=== PATIENT | male | born 1955 | race Caucasian/White ===

== ENCOUNTER 2022-11-29 12:56 | Outpatient (RCR) | payer MEDICARE, OTHER, SELFPAY | END 2022-12-28 16:43 | disposition home or self-care (01) | LOC: ST 12:56 | PROVIDERS: PCP Family Medicine | DX: G20 Parkinson's disease (principal); R47.1 Dysarthria and anarthria; R13.10 Dysphagia, unspecified | CPT/HCPCS: 92507; 92522; 92526; 92610 ==

== ENCOUNTER 2023-08-01 09:27 | Outpatient (OUT) | payer MEDICARE, OTHER, SELFPAY ==
[2023-08-01 09:58] LABS: Basophils Percent Auto 0.5 % (0.2-2.0); Eosinophils Absolute Auto 0.2 10^3/uL (0.0-0.7); Eosinophils Percent Auto 2.9 % (0.9-7.0); Hematocrit 47.3 % (42.0-54.0); Hemoglobin 15.4 g/dL (14.0-18.0); Immature Granulocytes Abs Auto 0.01 10^3/uL (0.00-0.03); Immature Granulocytes Pct Auto 0.2 % (0.0-0.5); Lymphocytes Percent Auto 32.1 % (20.5-60.0); Mean Corpuscular HGB Conc 32.6 g/dL (29.9-35.2); Mean Corpuscular Hemoglobin 29.2 pg (25.9-34.0); Mean Corpuscular Volume 89.6 fL (80.0-94.0); Mean Platelet Volume 10.3 fL (9.5-13.5); Monocytes Absolute Auto 0.5 10^3/uL (0.3-0.8); Monocytes Percent Auto 8.4 % (1.7-12.0); Neutrophils Absolute Auto 3.5 10^3/uL (1.4-6.5); Neutrophils Percent Auto 55.9 % (43.0-75.0); Platelet Count 255 10^3/uL (150-450); Red Blood Count 5.28 10^6/uL (4.70-6.10); Red Cell Distribution Width 13.1 % (11.0-15.0); White Blood Count 6.2 10^3/uL (4.0-11.0)
[2023-08-01 10:15] LABS: Estimated Average Glucose 120 mg/dL; Glycohemoglobin A1C 5.8 % (4.5-6.2)
[2023-08-01 10:27] LABS: Alanine Aminotransferase <6 U/L (16-63); Albumin Globulin Ratio 0.8; Albumin Level 3.4 g/dL (3.4-5.0); Alkaline Phosphatase 72 U/L (46-116); Anion Gap 13.4; Aspartate Amino Transferase 17 U/L (15-37); Bilirubin Total 0.3 mg/dL (0.2-1.0); Calcium 8.7 mg/dL (8.5-10.1); Carbon Dioxide 26.7 mmol/L (21.0-32.0); Chloride 103 mmol/L (98-107); Chol HDL Ratio 3.6; Cholesterol 207 mg/dL (<=200); Estimated GFR (African America >60 (>=60); Estimated GFR (Non-African Ame >60 (>=60); Free T3 2.56 pg/mL (2.18-3.98); Globulin 4.3 g/dL; Glucose 121 mg/dL (74-106); HDL Cholesterol 57 mg/dL (40-60); Potassium 4.1 mmol/L (3.5-5.1); Sodium 139 mmol/L (136-145); Thyroid Stimulating Hormone 2.109 uIU/mL (0.358-3.740); Total Protein 7.7 g/dL (6.4-8.2); Triglycerides 147 mg/dL (<=150); Uric Acid 6.3 mg/dL (3.5-7.2); VLDL CHOLESTEROL 29.4 mg/dL
[2023-08-01 10:47] LABS: Prostate Specific Antigen Scrn 0.65 ng/mL (<=4.00)
[2023-08-02 10:13] LABS: Insulin 22.3 uIU/mL (2.6-24.9)
== END 2023-08-01 09:28 | disposition home or self-care (01) ==
LOC: LAB 09:33
PROVIDERS: PCP Family Medicine; Visit Provider Family Medicine
DX: N32.81 Overactive bladder (principal); I10 Essential (primary) hypertension; F03.90 Unspecified dementia, unspecified severity, without behavioral disturbance, psychotic disturbance, mood disturbance, and anxiety; B35.1 Tinea unguium; E78.5 Hyperlipidemia, unspecified; R73.09 Other abnormal glucose; Z12.5 Encounter for screening for malignant neoplasm of prostate
CPT/HCPCS: 36415; 80053; 80061; 83036; 83525; 84436; 84443; 84481; 84550; 85025; G0103

== ENCOUNTER 2024-08-04 09:19 | Outpatient (OUT) | payer MEDICARE, OTHER, SELFPAY ==
--- OUTSIDE RECORDS SUMMARY | 2024-08-04 09:23 | XMS_ITS | CCD ---
Author Organization [facility]iniSymn Care Team Providers Care Sales Support Rep Name Role Phone KHURRAM SOUTH Admitting Unavailable KHURRAM SOUTH Attending Unavailable HOY ., DR BRAGG Primary Care Unavailable RAY, DR OLGA Martin Consulting Unavailable BRANNON, KHURRAM Consulting Unavailable HOY ., DR BRAGG Admitting Unavailable HOY ., DR BRAGG Attending Unavailable HOY ., DR BRAGG Primary Care Unavailable HOY ., DR BRAGG Consulting Unavailable HOY ., DR BRAGG Admitting Unavailable HOY ., DR BRAGG Attending Unavailable HOY ., DR BRAGG Primary Care Unavailable HOY ., DR BRAGG Consulting Unavailable BRANNON, KHURRAM Admitting Unavailable BRANNON, KHURRAM Attending Unavailable HOY ., DR BRAGG Primary Care Unavailable RAY, DR OLGA Martin Consulting Unavailable BRANNON, KHURRAM Consulting Unavailable BRANNON, KHURRAM Admitting Unavailable BRANNON, KHURRAM Attending Unavailable HOY ., DR BRAGG Primary Care Unavailable RIGOBERTO, DR LATRICE Plaza Consulting Unavailable KHURRAM SOUTH Consulting Unavailable MD Mahsa Gonzalez Primary Care Provider [phone] DO Jorge Jones Attending Provider [phone] MD Mahsa Gonzalez Primary Care Provider [phone] DO Nuria Castillo Attending Provider [phone] Nuria Castillo Attending Unavailable Nuria Castillo Admitting Unavailable Mahsa Gonzalez Primary Care Unavailable Jorge Jones Admitting Unavailab Mahsa Decker Primary Care Unavailable Jorge Jones Attending Unavailab Mahsa Decker MD Primary Care Provider [phone] EDWARD RYAN Attending Unavailable EDWARD RYAN Attending Unavailable EDWARD RYAN Attending Unavailable Allergies Allergy Classification Reported Allergen(s) Allergy Type Date of Onset Reaction(s) Facility (6 sources) ramelteon; Translations: [ramelteon] Drug Allergy 8 Shortness of breath [facility] (2 sources) Memantine; Translations: [memantine] Drug Allergy 4 dizzy [facility] (2 sources) Mold Extract; Translations: [mold] Drug Allergy 4 Sneezing [facility] (2 sources) Ragweed pollen; Translations: [ragweed pollen] Allergy to substance 4 Sneezing [facility] (3 sources) Mold Extract Drug Allergy 4 [facility] Medications Current Medications Medication Drug Class(es) Dates Sig (Normalized) Sig (Original) amphetamine aspartate 7.5 mg / amphetamine sulfate 7.5 mg / dextroamphetamine saccharate 7.5 mg / dextroamphetamine sulfate 7.5 mg oral tablet (5 sources) Central Nervous System Stimulant Start: 02-10-2018 take 1 tablet by mouth twice daily Dextroamphetamin e-Amphetamine (Adderall) 30 mg Tablet Active 30 MG PO Twice daily February 10, 2018 12:00am take 1 capsule by mo uth in the morning, then take 1 capsule by mouth every twenty-four hours at bedtime amphetamine-dextroamphetamine XR (Addera ll XR) 30 MG 24 hr capsule Take 30 mg by mouth in the morning and 30 mg before bedtime. Do not crush or chew.. Active aspirin 81 mg delayed release oral tablet (3 sources) Platelet Aggregation Inhibitor, Nonsteroidal Anti-inflammatory Drug take 1 tablet by mouth once daily aspirin 81 MG EC tablet Take 81 mg by mouth Daily Active B Complex Vitamins (vitamin B complex) tablet (3 sources) B Complex Vitamins (vitamin B complex) tablet every 8 (eight) hours Active 12 hr buPROPion hydrochloride 100 mg extended release oral tablet (5 sources) Aminoketone Start: 02-11-20 take 1 tablet by mouth twice daily Bupropion Hcl (Wellbutrin Sr) 100 mg Tablet Extended Release 12 Hr Active 100 MG PO Twice daily February 10, 2018 12:00am take 1 tablet by sixto every twelve hours in the morning buPROPion SR (Wellbutrin SR) 100 MG 12 h r tablet Take 100 mg by mouth in the morning and 100 mg before bedtime. Do not crush, chew, or split.. Active carbidopa 25 mg / levodopa 100 mg oral tablet (4 sources) Aromatic Amino Acid Decarboxylation Inhibitor, Aromatic Amino Acid Start: 01-23-2024 carbidopa-levodopa (Sinemet) 25-100 MG tablet Indications: Parkinson's disease without dyskinesia, unspecified whether manifestations fluctuate (CMS/HCC) Take by mouth four times per day (1.5 tablet 730 AM, 1.5 tablet 1130 AM, 1 tablet 330PM, and 1 tablet 730PM ) 150 tablet 3 01/23/2024 Active Start: 11-08-2023 take 1 tablet by sixto th once daily Carbidopa-Levodopa Active 1 TAB PO .5x daily November 08, 2023 12:00am cholecalciferol 0.025 mg oral capsule (5 sources) Vitamin D Start: 02-10-2018 take 1 capsule by mouth once daily Cholecalciferol (Vitamin D3) (Vitamin D3) 1,000 unit Capsule Active 1000 UNIT PO Daily February 10, 2018 12:00am take 1 capsule by mouth in the m orning cholecalciferol (Vitamin D-3) 25 MCG (1000 UT) capsule Take 1,000 Units by mouth in the morning. Active docusate sodium 100 mg oral capsule (2 sources) Start: 02-10-2018 take 1 capsule by mouth three times daily Docusate Sodium (Stool Softener) 100 mg Capsule Active 100 MG PO Three times daily February 10, 2018 12:00am donepezil hydrochloride 10 mg oral tablet (6 sources) Start: 01-16-2024 take 1 tablet by mouth once daily at bedtime donepezil (Aricept) 10 MG tablet Indications: Dementia without behavioral disturbance, psychotic disturbance, mood disturbance, or anxiety, unspecified dementia severity, unspecified dementia type (CMS/HCC) TAKE 1 TABLET BY MOUTH EVERY DAY AT BEDTIME 90 tablet 3 01/16/2024 Active take 1 tablet by mouth at bedtim e donepezil ODT (Aricept ODT) 10 MG disintegrating tablet Take 10 mg by mouth at bedtime Active folic acid 0.4 mg / vitamin b12 1 mg sublingual tablet (2 sources) Vitamin B12 Start: 02-10-2018 take 1 tablet under the tongue once daily Vitamin D57-Mivdv Acid Active 1 TAB SUBLINGUAL Daily February 10, 2018 12:00am ibuprofen 200 mg oral tablet (2 sources) Nonsteroidal Anti-inflammatory Drug Start: 02-10-2018 Ibuprofen (Advil) 200 mg Tablet Active 200 MG PO every 6 to 8 hours February 10, 2018 12:00am L. Gasseri-B. Bifidum-B Longum (Calibrus) 1.5 billion cell Capsule (2 sources) Start: 02-10-2018 L. Gasseri-B. Bifidum-B Longum (Calibrus) 1.5 billion cell Capsule Active 1 TAB PO Daily February 10, 2018 12:00am OLANZapine 10 mg oral tablet (5 sources) Atypical Antipsychotic Start: 04-27-2019 take 1 tablet by mouth once daily at bedtime Olanzapine (Zyprexa) 10 mg Tablet Active 10 MG PO Daily at bedtime April 27, 2019 1:00am tamsulosin hydrochloride 0.4 mg oral capsule (2 sources) alpha-Adrenergic Rafael Start: 02-10-2018 take 0.4 mg by mouth once daily Tamsulosin Active 0.4 MG PO Daily February 10, 2018 12:00am Vit A-Vit C-Vit C-Fznz-Kxtxjx (Eyeprotect) 7,160-113-100 hnxz-he-skrb tablet (1 source) Start: 11-08-2023 Vit A-Vit C-Vit V-Ssak-Zpsmeq (Eyeprotect) 7,160-113-100 zxug-cn-pags tablet Active 1 TAB PO Daily at 0730, 1530, 2330 November 08, 2023 12:00am vitamin b12 0.1 mg oral lozenge (3 sources) Vitamin B12 Cyanocobalamin 1 00 MCG lozenge as directed Orally Active Completed/Discontinued Medications Medication Drug Class(es) Dates Sig (Normalized) Sig (Original) famotidine 40 mg oral tablet (2 sources) Histamine-2 Receptor Antagonist Start: 02-10-2018 End: 04-27-2019 take 40 mg by mouth once daily at bedtime Famotidine Discontinued 40 MG PO Daily at bedtime 90 February 10, 2018 12:00am April 27, 2019 9:35am terbinafine 250 mg oral tablet (2 sources) Allylamine Antifungal Start: 06-02-2018 End: 04-27-2019 take 250 mg by mouth once daily Terbinafine Hcl Discontinued 250 MG PO Daily June 02, 2018 1:00am April 27, 2019 9:35am divalproex sodium 250 mg delayed release oral tablet (2 sources) Mood Stabilizer, Anti-epileptic Agent Start: 02-10-2018 End: 04-27-2019 take 1 tablet by mouth twice daily Divalproex (Depakote) 250 mg Tablet,Delayed Release (Dr/Ec) Discontinued 250 MG PO Twice daily February 10, 2018 12:00am April 27, 2019 9:35am Problems Active Problems Problem Classification Problem Date Documented Da te Episodic/Chronic Acquired foot deformities (2 sources) Right foot drop; Translations: [Foot drop, right foot] 05-21-2024 Episodic Conditions associated with dizziness or vertigo (10 sources) Dizziness and giddiness; Translations: [Dizziness] Onset: 08-09-2022 Episodic Deficiency and other anemia (1 source) Anemia, unspecified; Translations: [ANEMIA UNSPECIFIED] Onset: 08-13-2022 Episodic Delirium, dementia, and amnestic and other cognitive disorders (6 sources) Unspecified dementia without behavioral disturbance; Translations: [Senile dementia] Onset: 08-15-2022 09-29-2023 Chronic Diabetes mellitus without complication (1 source) Other abnormal glucose; Translations: [OTHER ABNORMAL GLUCOSE] Onset: 08-15-2022 Episodic Malaise and fatigue (1 source) Other fatigue; Translations: [OTHER FATIGUE] Onset: 08-13-2022 Episodic Miscellaneous mental health disorders (5 sources) Mental disorder; Translations: [Mental disorder, not otherwise specified] Onset: 09-29-2023 09-29-2023 Chronic Nutritional deficiencies (1 source) Vitamin D deficiency, unspecified; Translations: [VITAMIN D DEFICIENCY UNSPECIFIED] Onset: 08-13-2022 Chronic Other and unspecified benign neoplasm (2 sources) History of polyp of colon; Translations: [Personal history of colonic polyps] 04-27-2019 Episodic Other nervous system disorders (5 sources) Dysarthria; Translations: [Dysarthria and anarthria] Onset: 09-29-2023 09-29-2023 Episodic Other nervous system disorders (5 sources) Abnormal gait; Translations: [Unsteadiness on feet] Onset: 09-29-2023 09-29-2023 Episodic Other nutritional; endocrine; and metabolic disorders (1 source) Overweight; Translations: [OVERWEIGHT] Onset: 08-15-2022 Episodic Other screening for suspected conditions (not mental disorders or infectious disease) (7 sources) Encounter for screening for malignant neoplasm of rectum; Translations: [Encounter for screening for malignant neoplasm of prostate] Onset: 08-11-2022 Episodic Parkinson`s disease (1 source) Parkinson's disease; Translations: [PARKINSONS DISEASE] Onset: 08-15-2022 Chronic Transient cerebral ischemia (6 sources) Amaurosis fugax; Translations: [Amaurosis fugax] Onset: 02-11-2023 09-29-2023 Chronic Unclassified (5 sources) Parkinson's disease; Translations: [Parkinson disease] Onset: 09-29-2023 09-29-2023 Chronic Past or Other Problems Problem Classification Problem Date Documented Da te Episodic/Chronic Fracture of lower limb (6 sources) Other fracture of upper and lower end of right fibula, initial encounter for closed fracture; Translations: [Other fracture of upper and lower end of right fibula, subsequent encounter for closed fracture with routine healing] Onset: 09-01-2021 Episodic Other gastrointestinal disorders (5 sources) Dysphagia; Translations: [Dysphagia, unspecified] Onset: 09-29-2023 06-02-2018 Episodic Other nervous system disorders (3 sources) Sensory ataxia ; Translations: [Other lack of coordination] Onset: 09-29-2023 09-29-2023 Episodic Other non-traumatic joint disorders (4 sources) Pain in right ankle and joints of right foot; Translations: [PAIN IN RIGHT ANKLE] Onset: 12-01-2021 Episodic Results Test Name Value Interpretation Reference Range Facility [facility] 11-22-2023 L Specimen: [id number] Received: 11/22/23 Status: LALO Sanchez Num: [id number] Spec Type: Surgical Subm Dr: Nuria Castillo DO Tissues: A Colon Biopsy (CECAL POLYP) B Colon Biopsy (ASC POLYP) Procedures: HE/4, Gross/Micro L4/2 Age/ Patient Sex Location Account Attending Physician Tirso Lyons 68/M [id number] Nuria Castillo DO SPEC NUM: [id number] RECD: 11/22/23 STATUS: LALO SANCHEZ NUM: [id number] JESUS: 11/22/23- SUBM DR: Nuria Castillo DO ENTERED: 11/22/23-1013 [facility] DR: SPEC TYPE: Surgical DEPT: S ORDERED: HE/4, Gross/Micro L4/2 ORDERED: HE/4, Gross/Micro L4/2 Pathological Diagnosis A. Polyp, cecum, biopsy: Tubular Adenoma. - Negative For High Grade Dysplasia And Malignancy. B. Polyp, ascending colon, biopsy: Tubular Adenoma. - Negative For High Grade Dysplasia And Malignancy. Clinical Information Positive occult blood stool Gross Description Received are 2 formalin filled containers each labeled with the patient's name, date of and specific specimen site. A. Further labeled cecal polyp is a 0.3 x 0.3 x 0.1 cm jimenez polypoid tissue fragment, entirely submitted in A1. B. Further labeled ascending colon polyp are multiple jimenez mucosal tissue fragments admixed with possible vegetable matter measuring in aggregate 2.0 x 1.0 x 0.2 cm, entirely submitted in B1. Specimen: [id number] Received: 11/22/23-1011 Status: LALO Wagonereduardo Num: [id number] Spec Type: Surgical Subm Dr: Nuria Castillo DO Tissues: A Colon Biopsy (CECAL POLYP) B Colon Biopsy (ASC POLYP) Procedures: HE/4, Gross/Micro L4/2 Patient: Tirso Lyons [id number] (Continued) Specimen: [id number] Received: 11/22/23 (Continued) Signed (signature on file) Gera Roche MD 11/23/23 1600 Specimen: [id number] Received: 11/22/23 Status: LALO Sanchez Num: [id number] Spec Type: Surgical Subm Dr: Nuria Castillo DO Tissues: A Colon Biopsy (CECAL POLYP) B Colon Biopsy (ASC POLYP) Procedures: Susanne CARREON/Aissatou L4/2 Patient: Tirso Lyons [id number] (Continued) Specimen: [id number] Received: 11/22/23 (Continued) CPT Codes 23483b8 Specimen: [id number] Received: 11/22/23 Status: SARAHJosué Laura Num: [id number] Spec Type: Surgical Subm Dr: Nuria Castillo DO Tissues: A Colon Biopsy (CECAL POLYP) B Colon Biopsy (ASC POLYP) Procedures: Susanne CARREON/Aissatou L4/2 Patient: Tirso Lyons [id number] (Continued) Signed (signature on file) Gera Roche MD 11/23/23 1600 Normal [facility] Provider Letteron 10-25-2023 Provider Letter October 25, 2023 TIRSO LYONS [address] [place] [id number] : 1955 Dear Mr. Lyons, We have been trying to reach you with no success regarding a referral from Dr Gonzalez. It is important that you return our call receiving this letter. Also, at the time of your call, please provide us with your current demographic and insurance information. Thank you for your prompt attention to this matter. Sincerely, [facility] General Surgery [phone] Normal [facility] Lab Reportson 10-10-2023 Lab Reports [id number] #1.00TIFF Normal [facility] Physician Referralon 024 Physician Referral [id number] #1.00TIFF Normal [facility] US carotid doppler BIon 09-0 US carotid doppler BI [facility] [place] [address] Ultrasound Report Signed Patient: Tirso Lyons MR#: [id number] : 1955 Acct:[id number] Age/Sex: 67 / M ADM Date: 02/11/23 Loc: Room: Type: [facility] Attending Dr: Jorge Jones DO Ordering Provider: Jorge Jones DO Date of Service: 02/11/23 US/US carotid doppler BI: G45.3 Copies to: Jorge Jones DO CAROTID DUPLEX INDICATION: Visual change PROCEDURE: Color-flow duplex scanning is used to interrogate the extracranial carotid arterial system, as well as both vertebral arteries. The proximal right internal carotid artery shows a highest peak systolic velocity of 98.1 cm/s with an end-diastolic velocity of 14 cm/s . The mid internal carotid artery measures 63.2 cm/s peak systolic with an end-diastolic velocity of 18.9 cm/s . The distal segment measures 80.8 cm/s peak systolic with an end diastolic velocity of 24.1 cm/s . The velocities of the right common carotid artery are 126 cm/s peak systolic and 20.4 cm/s end- diastolic proximally and 96 cm/s peak systolic and 18.9 cm/s end-diastolic distally. The peak systolic velocity ratio of the internal to the common carotid artery is 1.02 . The right external carotid artery measures 91.8 cm/s peak systolic. The right vertebral artery is patent at 49 cm/s peak systolic and with antegrade flow. The proximal left internal carotid artery shows a highest peak systolic velocity of 57.5 cm/s with an end-diastolic velocity of 20.2 cm/s . The mid internal carotid artery measures 74.6 cm/s peak systolic with an end-diastolic velocity of 22 cm/s . The distal segment measures 77.7 cm/s peak systolic with an end diastolic velocity of 26.8 cm/s . The velocities of the left common carotid artery are 107 cm/s peak systolic and 23 cm/s end-diastolic proximally and 77.7 cm/s peak systolic and 18.9 cm/s end-diastolic distally. The peak systolic velocity ratio of the internal to the common carotid artery is 1 . The left external carotid artery measures 60.6 cm/s peak systolic. The left vertebral artery is patent at 49.7 cm/s peak systolic with antegrade flow. US/US carotid doppler BI IMPRESSION: NO HEMODYNAMICALLY SIGNIFICANT STENOSIS OF EITHER EXTRACRANIAL INTERNAL CAROTID ARTERY. BOTH VERTEBRAL ARTERIES ARE PATENT WITH ANTEGRADE FLOW. Impression dictated by: Kaiden Ruiz M.D.02/14/2023 8:43 AM Dictation Location: RAD-DOC-04 Tech: Concepcion Jameson Transcribed By: JOVITA 02/14/2343 Dictated By: Kaiden Ruiz MD 02/14/2342 Signed By: 02/14/23842 Normal [facility] MR angio MR brain w/oon MR angio MR brain w/o [facility] [place] [address] MRI Report Signed Patient: Tirso Lyons MR#: [id number] : 1955 Acct:[id number] Age/Sex: 67 / M ADM Date: 02/11/23 Loc: MR Room: Type: [facility] Attending Dr: Jorge Jones DO Copies to: Jorge Jones DO Ordering Provider: Jorge Jones DO Date of Service: 02/11/23 MR/MR angio MR brain w/o: G45,3 MR angio MR brain w/o 02/11/2023 11:43 AM SIGN OF SYMPTOMS: Amaurosis fugax PROTOCOL: Multiplanar multisequence MR images of the brain were obtained without IV contrast. Images include axial 3-D rkjl-av-hczrtx MRA with 3-D reconstructions COMPARISON: None. FINDINGS: MRI BRAIN WITHOUT CONTRAST: Extra axial spaces: There is mild diffuse cortical atrophy. Hemorrhage: None. Ventricular system: Within normal limits. Basal cisterns: Within normal limits and not effaced. Cerebral parenchyma: Mild periventricular and subcortical white matter T2 and FLAIR hyperintense foci are noted suggesting mild chronic microvascular ischemic change. Midline shift: None.. Cerebellum: Within normal limits. Brainstem: Within normal limits. OTHER: Calvarium: Normal marrow signal. Vascular system: Satisfactory flow voids within the anterior and posterior circulation. Visualized Paranasal sinuses: Within normal limits. Visualized Orbits: Within normal limits. Visualized upper cervical spine: Within normal limits. Sella and skull base: Within normal limits. MRA BRAIN: The superior cerebellar arteries, posterior inferior cerebellar arteries, and the basilar artery are within normal limits. The posterior cerebral arteries are unremarkable. The intracranial segments of the internal carotid arteries are within normal limits. The A1 segment of the right anterior cerebral artery is hypoplastic. This is a normal variant. There are normal anterior and middle cerebral arteries. Anterior communicating artery is patent. Posterior communicating arteries are present. The deep venous system and dural venous systems appear to be patent. MR/MR angio MR brain w/o IMPRESSION: No focal stenosis, occlusion, or aneurysmal dilatation. No acute intracranial pathology. Mild diffuse age-related cortical atrophy is noted along with mild chronic microvascular ischemic change. Impression dictated by: Jhony Selby M.D.02/11/2023 12:38 PM Dictation Location: [place] [address] Transcribed By: JOVITA 02/11/23 1238 Dictated By: Jhony Selby II, MD 02/11/23 1230 Signed By: 02/11/23 1238 Normal [facility] OCC BLD IMMUNO SCREENon 03-0 OCCULT BLOOD Negative Normal NEGATIVE [facility] Comment on above: Performed By: #### O BSCRN #### [facility] [address] [place] [address] Dr. Allison Hughes INSULINon 08-10-2022 Insulin 22.1 uIU/mL Normal 2.6-24.9 [facility] Comment on above: Performed By: #### I NSULIN #### [facility] [address] [place] [address] Dr. Allison Hughes CBC AUTO DIFFon 08-09-2022 BASO # 0.0 103/ul Normal 0.0-0.1 [facility] Comment on above: Performed By: #### C BC #### [facility] [address] [place] [address] Dr. Allison Hughes Basophils/100 WBC (Bld) 0.6 % Normal 0.2-2.0 [facility] Comment on above: Performed By: #### C BC #### [facility] [address] [place] [address] Dr. Allison Hughes EO # 0.1 103/ul Normal 0.0-0.7 [facility] Comment on above: Performed By: #### C BC #### [facility] [address] [place] [address] Dr. Allison Hughes Eosinophils/100 WBC (Bld) 1.7 % Normal 0.9-7.0 [facility] Comment on above: Performed By: #### C BC #### [facility] [address] [place] [address] Dr. Allison Hughes Erythrocyte distribution width (RBC) [Ratio] 13.4 % Normal 11.0-15.0 [facility] Comment on above: Performed By: #### C BC #### [facility] [address] [place] [address] Dr. Allison Hughes Hematocrit (Bld) [Volume fraction] 45.4 % Normal 42.0-54.0 [facility] Comment on above: Performed By: #### C BC #### [facility] [address] [place] [address] Dr. Allison Hughes Hemoglobin (Bld) [Mass/Vol] 15.0 g/dL Normal 14.0-18.0 [facility] Comment on above: Performed By: #### C BC #### [facility] [address] [place] [address] Dr. Allison Hughes IG # 0.02 10e3/ul Normal 0.00-0.03 [facility] Comment on above: Performed By: #### C BC #### [facility] [address] [place] [address] Dr. Allison Hughes IG % 0.3 % Normal 0.0-0.5 [facility] Comment on above: Performed By: #### C BC #### [facility] [address] [place] [address] Dr. Allison Hughes LYMPH # 2.1 103/ul Normal 1.2-3.8 [facility] Comment on above: Performed By: #### C BC #### [facility] [address] [place] [address] Dr. Allison Hughes Lymphocytes/100 WBC (Bld) 28.8 % Normal 20.5-60.0 [facility] Comment on above: Performed By: #### C BC #### [facility] [address] [place] [address] Dr. Allison Hughes MANUAL DIFF REQ NO Normal [facility] Comment on above: Performed By: #### C BC #### [facility] [address] [place] [address] Dr. Allison Hughes MCH (RBC) [Entitic mass] 29.1 pg Normal 25.9-34.0 [facility] Comment on above: Performed By: #### C BC #### [facility] [address] [place] [address] Dr. Allison Hughes MCHC (RBC) [Mass/Vol] 33.0 g/dL Normal 29.9-35.2 [facility] Comment on above: Performed By: #### C BC #### [facility] [address] [place] [address] [address] Allison Hughes MCV (RBC) [Entitic vol] 88.2 fL Normal 80.0-94.0 [facility] Comment on above: Performed By: #### C BC #### [facility] [address] [place] [address] [address] Allison Hughes MONO # 0.6 103/ul Normal 0.3-0.8 [facility] Comment on above: Performed By: #### C BC #### [facility] [address] [place] [address] Dr. Allison Hughes Monocytes/100 WBC (Bld) 7.7 % Normal 1.7-12.0 [facility] Comment on above: Performed By: #### C BC #### [facility] [address] [place] [address] Dr. Allison Hughse NEUT # 4.3 103/ul Normal 1.4-6.5 [facility] Comment on above: Performed By: #### C BC #### [facility] [address] [place] [address] Dr. Allison Hughes Neutrophils/100 WBC (Bld) 60.9 % Normal 43.0-75.0 [facility] Comment on above: Performed By: #### C BC #### [facility] [address] [place] [address] Dr. Allison Hughes Platelet mean volume (Bld) [Entitic vol] 10.1 fL Normal 9.5-13.5 [facility] Comment on above: Performed By: #### C BC #### [facility] [address] [place] [address] Dr. Allison Hughes PLT 272 103/ul Normal 150-450 [facility] Comment on above: Performed By: #### C BC #### [facility] [address] [place] [address] Dr. Allison Hughes RBC 5.15 106/ul Normal 4.70-6.10 [facility] Comment on above: Performed By: #### C BC #### [facility] [address] [address] [address] Allison Hughes WBC 7.1 103/ul Normal 4.0-11.0 [facility] Comment on above: Performed By: #### C BC #### [facility] [address] [address] [address] Allison Hughes FERRITINon 08-09-2022 Ferritin [Mass/Vol] 177.0 ng/mL Normal 26.0-388.0 [facility] Comment on above: Performed By: #### F ERR, PSASC, VITAD, VITB12 ####[facility] [address] [id number]. Allison Hughes FREE THYROXINE INDEX T7on FTI 2.18 Normal 1.30-4.50 [facility] Comment on above: Performed By: #### L IPID, CMP, URIC, TSH, T7 ####[facility] [address] [address]DrMatheus Hughes T3U 37.0 % Normal 33.0-40.0 [facility] Comment on above: Performed By: #### L IPID, CMP, URIC, TSH, T7 ####[facility] [address] [id number]. Allison Hughes T4 [Mass/Vol] 5.90 ug/dL Normal 4.50-12.10 [facility] Comment on above: Performed By: #### L IPID, CMP, URIC, TSH, T7 ####[facility] [address] [id number] Hughes GLYCOHEMOGLOBIN A1Con 2022 ADA RECOMMENDATION SEE BELOW Normal [facility] Comment on above: Result Comment: ADA RECOMMENDED LIMIT 4.0 - 6.0 ADA THERAPEUTIC TARGET < 7.0 ACTION SUGGESTED > 7.0 Performed By: #### A 1C #### [facility] [id number] Allison Hughes Glucose [Mass/Vol] 123 mg/dL Normal [facility] Comment on above: Performed By: #### A 1C #### [facility] [address] [address] [address] Allison Hughes HbA1c (Bld) [Mass fraction] 5.9 % Normal 4.5-6.2 [facility] Comment on above: Performed By: #### A 1C #### [facility] [address] [address] [address] Allison Hughes LIPID PROFILEon 08-09-2022 CHOL-HDL RATIO NORM SEE BELOW Normal [facility] Comment on above: Result Comment: 3.3 - 4.4 LOW RISK 4.4 - 7.1 AVERAGE RISK 7.1 - 11.0 MODERATE RISK >11.0 HIGH RISK Performed By: #### L IPID, CMP, URIC, TSH, T7 #### [facility] [address] [address] [address] Allison Hughes Cholesterol [Mass/Vol] 207 mg/dL Critically high <=200 [facility] Comment on above: Performed By: #### L IPID, CMP, URIC, TSH, T7 #### [facility] [address] [address] [address] Allison Hughes Cholesterol in HDL [Mass/Vol] 58 mg/dL Normal 40-60 [facility] Comment on above: Performed By: #### L IPID, CMP, URIC, TSH, T7 #### [facility] [address] [address] [address] Allison Hughes Cholesterol in LDL [Mass/Vol] 118.4 mg/dL Normal [facility] Comment on above: Performed By: #### L IPID, CMP, URIC, TSH, T7 #### [facility] [address] [address] [address] Allison Hughes Cholesterol.total/Cho lesterol in HDL [Mass ratio] 3.6 {ratio} Normal [facility] Comment on above: Performed By: #### L IPID, CMP, URIC, TSH, T7 #### [facility] [address] [address] [address] Allison Hughes HDL NORMAL > or = 60 mg/dl - LOW CARDIOVASCULAR RISK <40 mg/dl - HIGH CARDIOVASCULAR RISK Normal [facility] Comment on above: Performed By: #### L IPID, CMP, URIC, TSH, T7 #### [facility] [address] [address] [address] Allison Hughes LDL CALC NORMAL SEE BELOW Normal [facility] Comment on above: Result Comment: <100 mg/dl OPTIMAL 100 - 129 mg/dl NEAR OR ABOVE OPTIMAL 130 - 159 mg/dl BORDERLINE HIGH 160 - 189 mg/dl HIGH >190 mg/dl VERY HIGH Performed By: #### L IPID, CMP, URIC, TSH, T7 #### [facility] [address] [address] [address] Allison Hughes Triglyceride [Mass/Vol] 153 mg/dL Critically high <=150 [facility] Comment on above: Performed By: #### L IPID, CMP, URIC, TSH, T7 #### [facility] [address] [address] [address] Allison Hughes VLDL CALC 30.6 mg/dL Normal [facility] Comment on above: Performed By: #### L IPID, CMP, URIC, TSH, T7 #### [facility] [address] [address] [address] Allison Hughes PROF 14(COMP METB)on 023 Albumin [Mass/Vol] 3.8 g/dL Normal 3.4-5.0 [facility] Comment on above: Performed By: #### L IPID, CMP, URIC, TSH, T7 ####[facility] [address] [address]DrMatheus Hughes Albumin/Globulin [Mass ratio] 1.0 {ratio} Normal [facility] Comment on above: Performed By: #### L IPID, CMP, URIC, TSH, T7 ####[facility] [address] [id number] Hughes ALP [Catalytic activity/Vol] 89 U/L Normal 46-116 [facility] Comment on above: Performed By: #### L IPID, CMP, URIC, TSH, T7 ####[facility] [address] [id number] Hughes ALT [Catalytic activity/Vol] 9 U/L Critically low 16-63 [facility] Comment on above: Performed By: #### L IPID, CMP, URIC, TSH, T7 ####[facility] [address] [address]Dr. Allison Hughes Anion gap [Moles/Vol] 9.0 mmol/L Normal [facility] Comment on above: Performed By: #### L IPID, CMP, URIC, TSH, T7 ####[facility] [address] [place], [place] [address]Dr. Allison Hughes AST [Catalytic activity/Vol] 20 U/L Normal 15-37 [facility] Comment on above: Performed By: #### L IPID, CMP, URIC, TSH, T7 ####[facility] [address] [place], [place] [address]Dr. Allison Hughes Bilirubin [Mass/Vol] 0.5 mg/dL Normal 0.2-1.0 [facility] Comment on above: Performed By: #### L IPID, CMP, URIC, TSH, T7 ####[facility] [address] [place], [place] [address]Dr. Allison Hughes Calcium [Mass/Vol] 8.8 mg/dL Normal 8.5-10.1 [facility] Comment on above: Performed By: #### L IPID, CMP, URIC, TSH, T7 ####[facility] [address] [address]Dr. Allison Hughes Chloride [Moles/Vol] 102 mmol/L Normal 98-107 [facility] Comment on above: Performed By: #### L IPID, CMP, URIC, TSH, T7 ####[facility] [address] [address]Dr. Allison Hughes CO2 [Moles/Vol] 30.8 mmol/L Normal 21.0-32.0 [facility] Comment on above: Performed By: #### L IPID, CMP, URIC, TSH, T7 ####[facility] [address] [place], [place] [address]Dr. Allison Hughes Creatinine [Mass/Vol] 1.03 mg/dL Normal 0.70-1.30 [facility] Comment on above: Performed By: #### L IPID, CMP, URIC, TSH, T7 ####[facility] [address] [address]Dr. Allison Hughes EGFR-AF BULGARIAN >60 Normal >=60 [facility] Comment on above: Performed By: #### L IPID, CMP, URIC, TSH, T7 ####[facility] [address] [address]Dr. Allison Hughes EGFR-NON AF BULGARIAN >60 Normal >=60 [facility] Comment on above: Performed By: #### L IPID, CMP, URIC, TSH, T7 ####[facility] [address] [address]Dr. Allison Hughes Globulin (S) [Mass/Vol] 3.7 g/dL Normal [facility] Comment on above: Performed By: #### L IPID, CMP, URIC, TSH, T7 ####[facility] [address] [address]Dr. Allison Hughes Glucose [Mass/Vol] 114 mg/dL Critically high 74-106 [facility] Comment on above: Performed By: #### L IPID, CMP, URIC, TSH, T7 ####[facility] [address] [address]Dr. Allison Hughes Potassium [Moles/Vol] 3.8 mmol/L Normal 3.5-5.1 [facility] Comment on above: Performed By: #### L IPID, CMP, URIC, TSH, T7 ####[facility] [address] [address]Dr. Allison Hughes Protein [Mass/Vol] 7.5 g/dL Normal 6.4-8.2 [facility] Comment on above: Performed By: #### L IPID, CMP, URIC, TSH, T7 ####[facility] [address] [address]Dr. Allison Hughes Sodium [Moles/Vol] 138 mmol/L Normal 136-145 [facility] Comment on above: Performed By: #### L IPID, CMP, URIC, TSH, T7 ####[facility] [address] [id number]. Allison Hughes Urea nitrogen [Mass/Vol] 15.0 mg/dL Normal 7.0-18.0 [facility] Comment on above: Performed By: #### L IPID, CMP, URIC, TSH, T7 ####[facility] [address] [address]Dr. Allison Hughes Urea nitrogen/Creatinine [Mass ratio] 14.6 mg/mg Normal [facility] Comment on above: Performed By: #### L IPID, CMP, URIC, TSH, T7 ####[facility] [address] [address]Dr. Allison Hughes TSHon 08-09-2022 TSH 1.522 uIU/mL Normal 0.358-3.740 [facility] Comment on above: Performed By: #### L IPID, CMP, URIC, TSH, T7 #### [facility] [address] [address] [address] Allison Hughes URIC ACID SERUMon 08-09-2022 Urate [Mass/Vol] 6.3 mg/dL Normal 3.5-7.2 [facility] Comment on above: Performed By: #### L IPID, CMP, URIC, TSH, T7 #### [facility] [address] [address] [address] Allison Hughes VITAMIN B12on 08-09-2022 Cobalamin (Vitamin B12) [Mass/Vol] 2530.0 pg/mL Critically high 193.0-986.0 [facility] Comment on above: Performed By: #### F ERR, PSASC, VITAD, VITB12 ####[facility] [address] [address]Dr. Allison Hughes VITAMIN D 25 OHon 08-09-2022 VIT D 25-OH 55.7 ng/mL Normal [facility] Comment on above: Performed By: #### F ERR, PSASC, VITAD, VITB12 ####[facility] [address] [place], [place] [address]Zp. Allison Hughes VIT D RANGES SEE BELOW Normal [facility] Comment on above: Result Comment: <20 ng/mL Vit D deficient 20 - <30 ng/mL Vit D insufficient 30 - 100 ng/mL Vit D sufficient >100 ng/mL Potential Toxicity Performed By: #### F ERR, PSASC, VITAD, VITB12 ####[facility] [address] [place], [place] [address]Hp. Allison Saul Vital Signs Date Time Vital Sign Value Performing Clinician Facility 05-21-2024 13:29-0500 Body mass index (BMI) [Ratio] 34.72 kg/m2 Edward Ryan [employer] Work Phone: [facility] 05-21-2024 13:29-0500 Body weight 109.77 kg Edward Ryan [employer] Work Phone: [facility] 05-21-2024 13:29-0500 Diastolic blood pressure 81 mm[Hg] Edward Ryan [employer] Work Phone: [facility] 05-21-2024 13:29-0500 Heart rate 87 /min Edward Ryan [employer] Work Phone: [facility] 05-21-2024 13:29-0500 Systolic blood pressure 139 mm[Hg] Edward Ryan [employer] Work Phone: [facility] 11-22-2023 09:40-0400 Diastolic blood pressure 71 mm[Hg] MD Mahsa Gonzalez Work Phone: [facility] 11-22-2023 09:40-0400 Heart rate 63 /min MD Mahsa Gonzalez Work Phone: [facility] 11-22-2023 09:40-0400 Respiratory rate 16 /min MD Mahsa Gonzalez Work Phone: [facility] 11-22-2023 09:40-0400 SaO2% (BldA) [Mass fraction] 98 % MD Mahsa Gonzalez Work Phone: [facility] 11-22-2023 09:40-0400 Systolic blood pressure 112 mm[Hg] MD Mahsa Gonzalez Work Phone: [facility] 11-22-2023 07:52-0400 Body height 177.8 cm MD Mahsa Gonzalez Work Phone: [facility] 11-22-2023 07:52-0400 Body temperature 98.3 [degF] MD Mahsa Gonzalez Work Phone: [facility] 11-22-2023 07:52-0400 Body weight 104.32 kg MD Mahsa Gonzalez Work Phone: [facility] Encounters Encounter Date Encounter Type Care Provider Facility Start: 05-21-2024 End: 05-21-2024 Bamboo flowsheet Edward Ryan [employer] Work Phone: [facility] Start: 05-21-2024 End: 05-21-2024 Bamboo marciaheet Edward Ryan [employer] Work Phone: [facility] Start: 05-21-2024 End: 05-21-2024 Office outpatient visit 25 minutes Edward Ryan [employer] Work Phone: [facility] Comment on above: Parkinson's disease without dyskinesia, unspecified whether manifestations fluctuate (CMS/HCC) (Primary Dx); Foot drop, right; Gait instability; Dementia without behavioral disturbance, psychotic disturbance, mood disturbance, or anxiety, unspecified dementia severity, unspecified dementia type (CMS/HCC); Amaurosis fugax; Dysarthria; Psychiatric disorder; Dizziness Start: 05-21-2024 End: 05-21-2024 ambulatory EDWARD RYAN Not Available Start: 01-23-2024 End: 01-23-2024 ambulatory EDWARD RYAN Not Available Start: 11-22-2023 Non-patient / Non-visit MD Carlos Gonzalez Work Phone: [facility] Work Phone: Start: 11-22-2023 End: 11-22-2023 Admission to same day surgery center MD Mahsa Gonzalez Work Phone: [facility] Work Phone: Start: 11-22-2023 End: 11-22-2023 ambulatory MD Mahsa Gonzalez Work Phone: [facility] Work Phone: Start: 10-07-2023 ambulatory Facility:[facility] Start: 10-03-2023 End: 10-03-2023 ambulatory EDWARD RYAN Not Available Start: 02-11-2023 End: 02-11-2023 Patient encounter procedure MD Mahsa Gonzalez Work Phone: [facility] [place] Work Phone: Start: 02-11-2023 End: 02-11-2023 ambulatory MD Mahsa Gonzalez Work Phone: [facility] Work Phone: Start: 08-11-2022 End: 08-11-[address] MAHSA GONZALEZ . Facility:[facility] Start: 08-09-2022 End: 08-10-[address] MAHSA GONZALEZ . Facility:[facility] Start: 12-01-2021 End: 12-02-2021 ambulatory KHURRAMEDUIN BELTRANEN Facility:[facility] Start: 09-29-2021 End: 09-30-2021 ambulatory KHURRAM SOUTH Facility:[facility] Start: 09-01-2021 End: 09-02-2021 ambulatory KHURRAM BELTRANEN Facility:[facility] Procedures Date Procedure Procedure Detail Performing Clinician Start: 11-22-2023 Colonoscopy MD Mahsa Gonzalez Work Phone: Start: 02-11-2023 Magnetic resonance angiography of head without contrast MD Mahsa Gonzalez Work Phone: Start: 08-09-2022 PSA screening KHURRAM BRANNON Comment on above: Performed By: #### F ERR, PSASC, VITAD, VITB12 ####[address] [address]Dr. Allison Hughes Plan of Treatment Date Care Activity Detail Author Start: 10-03-2024 End: 10-03-2024 Patient encounter procedure 10/03/2024 1:20 PM EDT Office Visit [facility] [place] [address] [facility] [address] [place] [id number] Edward Ryan NP [address] [place] [id number] [facility] Start: 05-21-2024 End: 05-21-2024 Patient encounter procedure 05/21/2024 1:20 PM EST Office Visit [facility] [address] [place] [id number] Edward Ryan NP [address] [place] [id number] Arrived [facility] Comment on above: Arrived Start: 11-22-2023 [facility] Start: 02-11-2023 Doppler ultrasonogra phy of bilateral carotid arteries US carotid doppler BI [facility] Start: 02-11-2023 US.doppler Carotid arteries - bilateral [facility] Patient Education Colon polyps H emorrhoids (DC) Diverticulosis (DC) Know your Meds [facility] Work Phone: Payers Date Payer Category Payer Private Health Insurance [facility] [id number] 2023 Self-pay [id number] 2019 Medicare MEDICARE [id number] 1959 Medicare [id number] 1959 Unknown [id number] 1954 Unknown [id number] [id number]. 2.593 1954 Unknown [id number] [id number]. 2.593 1954 Unknown [id number] [id number]. 2.593 1954 Unknown [id number] [id number]. 2.593 1954 Unknown [id number] [id number]. 2.593 1954 Unknown [id number] [id number]. 2.1259 1954 Unknown [id number] [id number]. 2.1259 1954 Unknown [id number] [id number]. 2.1259 Unknown [facility] [id number] Unknown [id number] [id number]. 2.531 Unknown [id number]. 2.531 Social History Date Type Detail [facility] Work Phone: Start: 1955 Sex Assigned At Male [facility] Start: 09-29-2023 End: 11-22-2023 Tobacco smoking status NHIS Never smoked tobacco (finding) [facility] Start: 09-29-2023 Tobacco use and exposure Smokeless tobacco non-user [facility] Start: 01-23-2024 End: 05-21-2024 Alcoholic beverage intake Lifetime non-drinker (finding) [facility] Start: 01-23-2024 End: 05-21-2024 History of Social function [facility] Start: 01-23-2024 End: 05-21-2024 Tobacco use panel [facility] Start: 1955 Sex assigned at Not on file [facility] Goals Date Patient Goal Desired Activity /State History of Present illness Narrative 05-21-2024 Edward Ryan NP - 05/21/2024 1:20 PM EST Note Date & Type Note Facility 05-21-2024 History of Presen t illness Narrative Images from the original note were not included. Subjective Tirso Lyons, 68 y.o., male Patient is here for follow up to Parkinson's. He is accompanied today by a family member. He admits that following his last visit here he did increase his Sinemet to four times per day. He states he has noticed a slight improvement. He states that with his he did experience some increased dizziness but states this has subsided. Overall feels symptoms are well controlled. Admits use of AFO for his right foot drop and reports that this has been beneficial with walking and balance. Admits Parkinson's PT exercises twice a week. Denies falls since he was last seen, continues with a walker. Denies any wearing off symptoms or feelings of freezing of gait. Patient said he's sleeping okay. Patient states his memory has not changed. Denies any other concerns. Review of Systems Constitutional: Negative for appetite change, fatigue and fever. Respiratory: Negative for cough, shortness of breath and wheezing. Cardiovascular: Negative for chest pain, palpitations and leg swelling. Gastrointestinal: Negative for abdominal pain, constipation, diarrhea and nausea. Musculoskeletal: Positive for gait problem. Negative for arthralgias and myalgias. Neurological: Positive for dizziness, tremors, speech difficulty and weakness. Negative for numbness and headaches. Past Medical History: Diagnosis Date ADHD (attention deficit hyperactivity disorder) (CMS/[facility]) Bipolar 1 disorder (CMS/HCC) Past Surgical History: Procedure Laterality Date FOOT SURGERY SHOULDER SURGERY Family History Problem Relation Name Age of Onset Hypertension Father Social History Tobacco Use Smoking status: Never Smokeless tobacco: Never Substance Use Topics Alcohol use: Never Allergies: Rozerem [ramelteon] and Molds & smuts Vitals: 05/21/24 1329 BP: 139/81 Pulse: 87 Body mass index is 34.72 kg/m . weight: 242 lb Neurologic exam: Mental status: Well nourished, well developed and in no acute distress. Hypomimia. Grossly oriented to person, place and time. Previous MOCA . Impaired 3 object recall. The patient does have some difficulty with speech and it almost sounds like a spastic dysarthria. However, brain MRI does not reveal a reason for this. Attention and concentration are normal. Fund of knowledge is appropriate for level of education. Cranial nerves: CN II: Visual acuity is normal. Visual wise full to confrontation. CN III, IV, : pupils equal round and reactive to light. Extraocular movements intact. No ptosis present. CN V: Facial sensation is normal. CN VII: Full and symmetric facial movement. CN VIII: Hearing is intact. CN IX and X: Palate elevates symmetrically. CN XI: Shoulder shrug is normal bilaterally. CN XII: Tongue is midline without atrophy or fasciculation. Motor: RUE Strength deltoid, , biceps , triceps , wrist extensors , wrist flexor , aitchbone breaker strength 5/5. LUE Strength deltoid , biceps , triceps , wrist extensors , wrist flexor , aitchbone breaker strength 5/5. RLE Strength illopsoas, quadriceps, 5/5 Right foot drop, does have AFO. LLE Strength illopsoas, quadriceps, tibialis anterior, and gastrocnemius strength 5/5. Subtle rigidity in bilateral upper extremities R>L, very mild bradykinesia. No resting tremor appreciated today. Sensory: Sensation is intact to light touch throughout distal extremities. Reflexes: RUE biceps reflex 2+ , brachioradialis reflex 2+. LUE biceps reflex 2+ , brachioradialis reflex 2+. RLE knee reflex 1+ . LLE knee reflex 1+ . Harper's sign negative Coordination: [id number] testing is normal Gait: [place], quick steps, ambulates with walker. Review and summary of old records: MOCA on 01/23/24: recall 3/ Carotid ultrasound on 02/11/23: No hemodynamically significant stenosis of either extracranial intracranial carotid artery. Vertebral arteries are patent with antegrade flow. MRI of the brain without contrast at [facility] on 02/11/23: no acute intracranial pathology. Mild diffuse age-related cortical atrophy is noted along with mild chronic microvascular ischemic change. MRA of the brain at [facility] on 02/11/23: no focal stenosis, occlusion, or aneurysmal dilatation. ANS 01/23/20: Normal arterial elasticity and endothelial function MRI of the brain 06/19/19. No acute findings. Chronic microvascular changes. Barium swallow [facility]: No abnormal or suspicious findings to account for patient's symptoms on Assessment/Plan Diagnoses and all orders for this visit: Parkinson's disease without dyskinesia, unspecified whether manifestations fluctuate (CMS/HCC) It is my impression that the patient has Parkinson's disease; likely idiopathic in nature. He has mild bradykinesia, rigidity, and gait abnormalities. MRI is unremarkable. He has had a positive response to dopaminergic therapy supportive of the diagnosis. He is participating in PT 2 times weekly and admits this is helping. Speech is dysarthic (no cause idenified on imaging). Overall, well controlled on the current medication regimen and the patient denies any wearing off type symptoms or freezing of gait. PLAN: - Continue Sinemet 25/100 1.5 tablets PO four times daily (730 AM, 1130 AM, 330 PM, and 730 PM. - Continue PT home exercises - He is not taking Entacapone and did not start this due to concern for interaction with Zyprexa and mood changes. Gait instability Likely multifactoral given his Parkinsons and right foot drop. PLAN: - Fall precautions discussed. - Continue the use of a walker for stability Foot drop, right The patient has foot drop on the right. He admits to a previous back injury in the , a previous meniscus injury, as well as a previous right foot injury. I do believe that this is likely contributing to his gait issues. Consideration also given to a peroneal neuropathy versus a lumbar cause for the patients symptoms. He has since obtained AFO which has been beneficial for his gait. PLAN: - Conitnue use of Right AFO - We have discussed further evaluation for cause with EMG to help differentiate between processes which may be contributing to his symptoms, though this has been declined by patient Dysarthria Ongoing dysarthria, which sounds sort of like spastic dysarthria, though no obvious reason seen on brain MRI. He has since completed ST for this. Dementia without behavioral disturbance, psychotic disturbance, mood disturbance, or anxiety, unspecified dementia severity, unspecified dementia type (CMS/HCC) Patient has dementia, of which may be related to Parkinson's. Previous MOCA was . MRI brain was unremarkable other than some mild atrophy. He has been tolerating donepezil thus far and memory stable today. MOCA on 01/23/24 was 23/30. PLAN: - Consider neuropsych testing in the future. This was again discussed and deferred per patient request - Continue donepezil 10 mg PO QHS - Stopped memantine due to dizziness - Recommended adequate hydration, sleep hygiene, brain stimulating activity and compensation techniques Psychiatric disorder The patient has a history of psychiatric disease and is seen by Dr. Marquis. He previously underwent a reduction in his Zyprexa which led to significant anger and agitation (so it was increased again). We will need to work with psychiatry to co-manage his mood disorder with his memory impairment and Parkinson's. Both seem to be stable, with good response to therapy. Dizziness The patient has complaints of dizziness, now very intermittent and usually only short-lasting after standing up. ANS normal. Pt feels better since stopping memantine. PLAN: - Will continue to montior - Optimal hydration was discussed Amaurosis fugax It is my impression that the patient had an episode of amaurosis fugax in January 2023. This appears to have resolved. The patient does have occasional high blood pressure and is over 65. He was not on any medication for antiplatelet as it relates to secondary stroke prevention so the patient was started on ASA 81 mg. MRI, MRA, and carotid ultrasound were unremarkable PLAN: - Continue aspirin 81 mg by mouth daily (we will continue this given his risk factors) - Signs and symptoms of stroke discussed in detail and advised the patient to seek emergent evaluation in the ED should any such signs and symptoms develop. The patient verbalized understanding. Follow up in 4-5 months or sooner if symptoms worsen, fail to improve, or should a new neurological concern arise. Pt has been fully educated on their diagnosis, treatment options, follow up plan, and return instructions documented in this encounter [facility] History and physical note 11-22-2023 Note Date & Type Note Facility 11-22-2023 History and physical note Note Date/Time November 22, 2023 8:[address] [facility] [address] [place] [address] Gastroenterology H&P Signed Patient: Tirso Lyons MR#: [id number] : 1955 Acct:[id number] Age/Sex: 68 / M Adm Date: 4 Loc: Room: Type: [facility] Attending Dr: Nuria aCstillo DO Copies to: DO Mahsa Braga MD~ Date of Service: 11/22/2023 HISTORY & PHYSICAL: Patient's history with special attention to the cardiovascular, pulmonary systems and the current problem was reviewed with the patient immediately prior to the procedure. Present medications and doses reviewed in the EMR. Allergies and pertinent laboratory tests were also reviewedat this time in the EMR. The physical examination, as below, was then performed. Indication, assessment and HPI: 68-year-old male who presents for colonoscopy for history of colon polyps and Hemoccult positive stool. Last colonoscopy in 2019 Family history of GI malignancy? No PHYSICAL EXAMINATION General appearance: cooperative, NAD Skin: No jaundice, no rash or lesions Head: NCAT Eyes: Anicteric Neck: Supple Lungs: Normal respiratory effort, no use of accessory muscles Abdomen: Soft, nondistended Neuro: No focal deficits, Ox3. REVIEW OF SYSTEMS Constitutional: Denies malaise, fevers Cardiovascular: Denies chest pain, palpitations Respiratory: Denies shortness of breath, wheezing Gastrointestinal: As per HPI Genitourinary: Denies dysuria, polyuria Musculoskeletal: Denies joint swelling, joint stiffness Neurological: Denies confusion, numbness, tingling Endocrine: Denies fatigue Written informed consent obtained from the patient. Risks (including but not limited to perforation, infection, bloating, bleeding, need for emergent surgeryand loss of life), benefits and alternatives explained and questions answered. The patient verbalized understanding. Based on history patient is an appropriate candidate for the procedure. Nuria Castillo DO Documented By: Nuria Castillo DO 11/22/23818 Signed By: <Electronically signed by Nuria Castillo DO> 11/22/23818 [facility] Work Phone: Procedure note 11-22-2023 Note Date & Type Note Facility 11-22-2023 Procedure note [facility] Clinical Note 12-01-2021 Note Date & Type Note Facility 12-01-2021 Note PROCEDURE: XR ANKLE RT MIN 3 VIEWS COMPARISON: 09/29/2021 HISTORY: Pain of right ankle joint FINDINGS: BONES:Stable spiral fracture of the distal fibula with no significant change in sclerotic healing or new bony bridging. No new fracture or dislocation. SOFT TISSUES:Negative. No visible soft tissue swelling. EFFUSION:None visible. OTHER: Negative. IMPRESSION: Stable distal fibular fracture Electronically authenticated by: OLGA BELL Date: 2021-12-01 21:35 [facility] Clinical Note 09-29-2021 Note Date & Type Note Facility 09-29-2021 Note PROCEDURE: XR ANKLE RT MIN 3 VIEWS HISTORY: Pain of right ankle joint ; follow-up ankle fracture COMPARISON: XR ankle right 09/01/2021 FINDINGS: BONES:Oblique fracture of the distal fibula with slight increase in fracture line density. Normal alignment is maintained. SOFT TISSUES:No visible soft tissue swelling. EFFUSION:None visible. OTHER: Negative. IMPRESSION: 1. Ongoing bone early bone healing of the minimally displaced distal fibula fracture. Electronically authenticated by: LATRICE LYONS Date: 2021-09-29 16:20 [facility] Clinical Note 09-01-2021 Note Date & Type Note Facility 09-01-2021 Note PROCEDURE: XR ANKLE RT MIN 3 VIEWS COMPARISON: 08/11/2021 HISTORY: Pain of right ankle joint FINDINGS: BONES:Stable oblique/spiral fracture distal fibular diaphysis at the syndesmosis. No change in angulation or distraction. The fracture fragments are less well delineated with periosteal reaction consistent with interval healing. No new fracture or dislocation. SOFT TISSUES:Negative. No visible soft tissue swelling. EFFUSION:None visible. OTHER: Negative. IMPRESSION: Stable healing distal fibular fracture Electronically authenticated by: OLGA BELL Date: 2021-09-01 16:49 [facility] Evaluation note Note Date & Type Note Facility Evaluation note No assessment information availa [facility] Work Phone: Evaluation note Note Date & Type Note Facility Evaluation note Diagnosis Parkinson's disease without dyskinesia, unspecified whether manifestations fluctuate ([facility])- Primary Foot drop, right Other acquired deformity of ankle and foot Gait instability Abnormality of gait Dementia without behavioral disturbance, psychotic disturbance, mood disturbance, or anxiety, unspecified dementia severity, unspecified dementia type ([facility]) Amaurosis fugax Transient arterial occlusion of retina Dysarthria Psychiatric disorder Unspecified nonpsychotic mental disorder Dizziness Dizziness and giddiness documented in this encounter [facility] Summary Purpose Family History No Family History Records Found Relationship Condition Age at Onset Recorded Date/T shar Not Specified History of malignant neoplasm of kidney Unknown Advance Directives No Advanced Directives Records Found Advance Directive Response Recorded Date/ Time Advance Directives No February 10, 2018 6:36am Chief Complaint and Reason for Visit Chief Complaint g45.3 Chief Complaint Positive occult stoo l blood test Positive occult stool blood test Additional Source Comments (unrecognized sect ion and content) No Status Records FoundNo Status Records FoundNo Status Records FoundNo Status Records Found INFORMATION SOURCE (unrecogn ized section and content) DATE CREATED AUTHOR 08/17/2022 [facility] DATE CREATED AUTHOR AUTHOR'S ORGANIZ ATION 10/27/2023 [facility] DATE CREATED AUTHOR AUTHOR'S ORGANIZ ATION 11/30/2023 [facility] DATE CREATED AUTHOR AUTHOR'S ORGANIZ ATION 05/24/2024 [facility] [employer] Care Teams (unrecognized sec tion and content) Team Status: Active Member Role Status Dates Mahsa Gonzalez MD Primary Care Provider Active Team Status: Inactive Member Role Status Dates Mahsa Gonzalez MD Primary Care Provider Active Jorge Jones DO Attending Provider Active Team Status: Inactive Member Role Status Dates Mahsa Gonzalez MD Primary Care Provider Active Start: November 22, 2023 End: November 22, 2023 Nuria Castillo DO Attending Provider Active St art: November 22, 2023 End: November 22, 2023 Team Status: Active Member Role Status Dates Mahsa Gonzalez MD Primary Care Provider Active Start: November 22, 2023 Nuria Castillo DO Attending Provider, Other Provider Active Start: November 22, 2023 Sales Support Rep Relationship Specialty Start Date End Date Mahsa Gonzalez MD [address] [place] [address] PCP - General Family Medicine 09/21/23 Sales Support Rep Relationship Specialty Start Date End Date Mahsa Gonzalez MD [address] [place] [address] PCP - General Family Medicine 09/21/23 Goals (unrecognized section and content) Goals may be documented in a n alternate section Reason for Visit (unrecogniz ed section and content) Reason Comments Parkinson's Disease Gait Problem Dementia Dizziness FOR RECORDS PERTAINING TO PATIENTS WHO ARE OR HAVE BEEN ENROLLED IN A CHEMICAL DEPENDENCY/SUBSTANCEABUSE PROGRAM, SOME INFORMATION MAY BE OMITTED. This clinical summary was aggregated from multiple sources. Caution should be exercised in using it in the provision of clinical care. This summary normalizes information from multiple sources, and as a consequence, information in this document may materially change the coding, format and clinical context of patient data. In addition, data may be omitted in some cases. CLINICAL DECISIONS SHOULD BE BASED ON THE PRIMARY CLINICAL RECORDS. [facility] [employer] [facility]. provides no warranty or guarantee of the accuracy or completeness of information in this document.
[2024-08-04 09:55] LABS: Basophils Percent Auto 0.4 % (0.2-2.0); Eosinophils Absolute Auto 0.1 10^3/uL (0.0-0.7); Eosinophils Percent Auto 2.2 % (0.9-7.0); Hematocrit 45.7 % (42.0-54.0); Hemoglobin 15.2 g/dL (14.0-18.0); Immature Granulocytes Abs Auto 0.01 10^3/uL (0.00-0.03); Immature Granulocytes Pct Auto 0.2 % (0.0-0.5); Lymphocytes Absolute Auto 1.6 10^3/uL (1.2-3.8); Lymphocytes Percent Auto 29.6 % (20.5-60.0); Mean Corpuscular HGB Conc 33.3 g/dL (29.9-35.2); Mean Corpuscular Hemoglobin 29.6 pg (25.9-34.0); Mean Corpuscular Volume 88.9 fL (80.0-94.0); Mean Platelet Volume 10.4 fL (9.5-13.5); Monocytes Absolute Auto 0.5 10^3/uL (0.3-0.8); Monocytes Percent Auto 8.6 % (1.7-12.0); Neutrophils Absolute Auto 3.2 10^3/uL (1.4-6.5); Platelet Count 267 10^3/uL (150-450); Red Blood Count 5.14 10^6/uL (4.70-6.10); Red Cell Distribution Width 12.8 % (11.0-15.0); White Blood Count 5.4 10^3/uL (4.0-11.0)
[2024-08-04 10:53] LABS: Alanine Aminotransferase 10 U/L (16-63); Albumin Globulin Ratio 0.9; Albumin Level 3.6 g/dL (3.4-5.0); Alkaline Phosphatase 69 U/L (46-116); Anion Gap 8.6; Aspartate Amino Transferase 15 U/L (15-37); BUN Creatinine Ratio 15.1; Bilirubin Total 0.5 mg/dL (0.2-1.0); Calcium 8.9 mg/dL (8.5-10.1); Carbon Dioxide 31.4 mmol/L (21.0-32.0); Chloride 103 mmol/L (98-107); Chol HDL Ratio 3.4; Cholesterol 189 mg/dL (<=200); Estimated GFR (African America >60 (>=60 mL/min/1.73m^2); Estimated GFR (Non-African Ame >60 (>=60 mL/min/1.73m^2); Globulin 3.8 g/dL; Glucose 116 mg/dL (74-106); HDL Cholesterol 55 mg/dL (40-60); Sodium 139 mmol/L (136-145); Thyroid Stimulating Hormone 1.811 uIU/mL (0.358-3.740); Total Protein 7.4 g/dL (6.4-8.2); Triglycerides 140 mg/dL (<=150); Uric Acid 5.9 mg/dL (3.5-7.2)
[2024-08-04 11:35] LABS: Prostate Specific Antigen Scrn 0.57 ng/mL (<=4.00)
[2024-08-04 16:55] LABS: Estimated Average Glucose 126 mg/dL
[2024-08-05 12:07] LABS: Insulin 17.5 uIU/mL (2.6-24.9)
== END 2024-08-04 09:20 | disposition home or self-care (01) ==
PROVIDERS: PCP Family Medicine; Visit Provider Family Medicine
DX: E78.5 Hyperlipidemia, unspecified (principal); G20.B2 Parkinson's disease with dyskinesia, with fluctuations; I10 Essential (primary) hypertension; F31.9 Bipolar disorder, unspecified; E11.9 Type 2 diabetes mellitus without complications; R53.83 Other fatigue; E03.9 Hypothyroidism, unspecified; Z12.5 Encounter for screening for malignant neoplasm of prostate
CPT/HCPCS: 36415; 80053; 80061; 83036; 83525; 84436; 84443; 84481; 84550; 85025; G0103